=== PATIENT | male | born 1950 | race Caucasian/White ===

== ENCOUNTER → 2017-10-12 | Outpatient (CLI) | payer OTHER | LOC: CARD 13:42 | PROVIDERS: ATTEND Internal Medicine Cardiovascular Disease | DX: R07.89 Other chest pain (principal); R06.02 Shortness of breath; E78.4 Other hyperlipidemia; E66.9 Obesity, unspecified | CPT/HCPCS: 93306 ==

== ENCOUNTER → 2017-10-13 | Outpatient (CLI) | payer OTHER ==
[~2017-10-13] VITALS: Ht 170.2 cm; Wt 88.9 kg
[~2017-10-13] MED LIST: CATHETER FLUSH 10 ML SYR IV PRN
[2017-10-13 13:03] VITALS: BP 138/83
--- NOTE | 2017-10-14 21:48 | STRESS TEST ---
DATE OF SERVICE: 10/13/2017 RESTING AND POST EXERCISE TECHNETIUM-99M TETROFOSMIN SPECT CT IMAGING Baseline images were carried out after injection of 10.75 mCi technetium-99m Tetrofosmin. This was followed by exercise on a treadmill. Kurtis protocol was employed. Heart rate and blood pressure responses to exercise were normal. A 32.8 mCi technetium-99m Tetrofosmin were injected after the patient had attained 85% of maximum predicted heart rate and the exercise was continued for more than another minute. The test was stopped on account of fatigue. There is considerable baseline artifact at peak exercise and ST segments are difficult to interpret. In the recovery phase, there appears to be approximately [address] segment depression. The patient attained a total of 94% of maximum predicted heart rate and 9.7 METS of workload. He exercised for a total of 8 minutes and 6 seconds in the Kurtis protocol. Review of images at rest and following stress indicates a small apical perfusion defect that appears transient. Gated images show normal global left ventricular systolic function with normal regional wall motion. Left ventricular ejection fraction is calculated to be 62%. Left ventricular end diastolic volume 50 mL. TID is absent (0.94). CONCLUSIONS: 1. This study is suggestive of a small amount of apical ischemia. 2. Normal regional wall motion. 3. Normal global left ventricular systolic function with a calculated ejection fraction of 62%. 4. Normal left ventricular cavity size. Job ID: [id number] DocumentID: [id number] Dictated Date: 10/14/2017 17:08:33 Shingle [place]yer Date: 10/14/2017 21:48:15 Dictated By: MORRIS ONEIL MD, MA, FACP, FACC,
== END ==
LOC: CARD 11:27
PROVIDERS: ATTEND Internal Medicine Cardiovascular Disease
DX: R07.89 Other chest pain (principal); R06.02 Shortness of breath; E66.9 Obesity, unspecified; E78.4 Other hyperlipidemia
CPT/HCPCS: 78452; 93017

== ENCOUNTER → 2017-10-27 | Outpatient (CLI) | payer OTHER | LOC: RAD 15:17 | PROVIDERS: ATTEND Internal Medicine Cardiovascular Disease | DX: I70.213 Atherosclerosis of native arteries of extremities with intermittent claudication, bilateral legs (principal); E78.4 Other hyperlipidemia; R07.89 Other chest pain; R06.02 Shortness of breath; E66.9 Obesity, unspecified | CPT/HCPCS: 93923 ==

== ENCOUNTER 2018-11-23 08:58 | Day surgery (SDC) | payer OTHER ==
[~2018-11-23] VITALS: Ht 170.2 cm; Wt 88.9 kg
[2018-11-23] MEDS ORDERED: LIDOCAINE 1% INJ 20 ML 20 ML VIAL ONE (09:01)
[2018-11-23] MEDS ORDERED: HEParin (CATH LAB) 2,000 ML IV ONE (09:01)
[2018-11-23] MEDS ORDERED: NS IV 1000 ML 1,000 ML ONE (09:01)
[2018-11-23] MEDS ORDERED: NS IV 1000 ML 1,000 ML IV SCH ×2 (09:13→13:05)
[2018-11-23 09:28] VITALS: BP 138/75
[2018-11-23 09:50] LABS: HEMOGLOBIN 14.6 G/DL (13.3-17.7); MEAN PLATELET VOLUME 10.1 FL (7.4-10.4); RED CELL DISTRIBUTION WIDTH 13.2 % (10.0-14.5); WHITE BLOOD COUNT 9.2 10^3/uL (4.3-11.0)
[2018-11-23] MEDS ORDERED: ASPI-999 PO (09:54)
[2018-11-23] MEDS ORDERED: NAPR-1071 PO (09:54)
[2018-11-23] MEDS ORDERED: ASCO-262 PO (09:54)
[2018-11-23] MEDS ORDERED: NIAC500C3 PO (09:54)
[2018-11-23] MEDS ORDERED: GABA-488 PO (09:54)
[2018-11-23] MEDS ORDERED: ATOR40TA PO (09:54)
[2018-11-23] MEDS ORDERED: LEVO100T PO (09:54)
[2018-11-23] MEDS ORDERED: METO-370 PO (09:54)
[2018-11-23] MEDS ORDERED: MULT-436 PO (09:54)
[2018-11-23] MEDS ORDERED: FISH1CAP15 PO (09:54)
--- NOTE | 2018-11-23 09:56 | NUR ---
SPOKE WITH PT (HE BROUGHT IN ALL HIS BOTTLES AND HAD A LIST OF ALL HIS OTC MEDS) TO COMPLETE THE MED REC. PT WAS ABLE TO VERIFY ALL HIS MEDICATIONS AND TELL ME HOW HE TAKES THEM. OTC MEDS: ASPIRIN 81M DAILY FISH OIL 1200M TABS DAILY MULTIVITAMIN: 1 DAILY NAPROXEN 500M TAB DAILY NIACIN 500M HS VITAMIN C 500M DAILY
[2018-11-23 10:05] LABS: PROTHROMBIN TIME PATIENT 13.2 SEC (12.2-14.7)
[2018-11-23 10:10] LABS: ALANINE AMINOTRANSFERASE 33 U/L (0-55); ALBUMIN 4.3 GM/DL (3.2-4.5); ALKALINE PHOSPHATASE 117 U/L (40-136); BILIRUBIN,TOTAL 0.6 MG/DL (0.1-1.0); BUN/CREATININE RATIO 11; CALCIUM 9.4 MG/DL (8.5-10.1); CARBON DIOXIDE 26 MMOL/L (21-32); CHLORIDE 104 MMOL/L (98-107); CHOLESTEROL 120 MG/DL (< 200); CREATININE SERUM 1.14 MG/DL (0.60-1.30); GFR ESTIMATED > 60; GLUCOSE 98 MG/DL (70-105); HDL CHOLESTEROL 36 MG/DL (40-60); SODIUM 141 MMOL/L (135-145); TOTAL PROTEIN 7.9 GM/DL (6.4-8.2); TRIGLYCERIDES 150 MG/DL (<150); VLDL CHOLESTEROL 30 MG/DL (5-40)
[2018-11-23] MEDS ORDERED: fentaNYL INJECTION 100 MCG/2 ML AMP ONE (11:25)
[2018-11-23] MEDS ORDERED: MIDAZOLAM 5 MG/5 ML (VERSED) VIAL ONE (11:25)
--- NOTE | 2018-11-23 11:47 | Cardiac Procedure Note-CS/ASA ---
Pre-Procedure Note Pre-Op Procedure Note H&P Reviewed The H&P was reviewed, patient examined and no changes noted. Date H&P Reviewed: Nov 23, 2018 Time H&P Reviewed: 11:47 Conscious Sedation Pre-Proced Time 11:47 ASA Score 3 For ASA 3 and 4: Consider anesthesia and medical clearance. Also, for patients with a history of failed moderate sedation consider anesthesia. Airway Lungs Heart ASA score ASA 1: a normal healthy patient ASA 2: a patient with a mild systemic disease (mid diabetes, controlled hypertension, obesity ASA 3: a patient with a severe systemic disease that limits activity (angina, COPD, prior Myocardial infarction) ASA 4: a patient with an incapacitating disease that is a constant threat to life (CHF, renal failure) ASA 5: a moribund patient not expected to survive 24 hrs. (ruptured aneurysm) ASA 6: a declared brain- patient whose organs are being harvested. For emergent operations, add the letter E after the classification Mallampati Classification Grade 2 Sedation Plan Analgesia, Amnesia, Plan communicated to team members, Discussed options with patient/fam, Discussed risks with patient/fam The patient is an appropriate candidate to undergo the planned procedure, sedation, and anesthesia. The patient immediately re-assessed prior to indication. MORRIS ONEIL MD FACP FAC CCDS Nov 23, 2018 11:47
[2018-11-23] MEDS ORDERED: ASPIRIN 81 MG CHEW (CHILDREN'S ASA) ONE (12:34)
--- NOTE | 2018-11-23 12:45 | CARDIAC CATHETERIZATION ---
DATE OF SERVICE: 11/23/2018 CARDIAC CATHETERIZATION REPORT INDICATIONS: The patient is a 68-year-old man who has multiple coronary artery disease risk factors and who has been experiencing symptoms of angina. Cardiac catheterization was carried out today after having obtained an informed consent. DESCRIPTION OF PROCEDURE: He was brought to the cardiac catheterization laboratory in a fasting state. Right groin was prepared and draped in the usual sterile fashion. Lidocaine 1% was used for local anesthesia. Modified Seldinger technique was used to advance a 5-Jamaican sheath in right femoral artery. A 5-Jamaican JL4 catheter was used for left coronary angiography. During left coronary injections, the patient developed ventricular fibrillation for which he was defibrillated with external patches and that restored sinus rhythm. The catheter, upon engagement of the left main coronary artery, was exhibiting dampening of pressure. Therefore, most injection that we took were subselective. Some initial injections are selective. We used a 5-Jamaican JR4 catheter for right coronary angiography. We used a 5-Jamaican pigtail catheter for left heart catheterization and left ventricular angiography. HEMODYNAMICS: Left ventricular end-diastolic pressure following coronary angiography was 16 mmHg. There is no significant pressure gradient on pullback across the aortic valve. Ascending aortic pressure 116/68 with a mean 87 mmHg. CORONARY ANGIOGRAPHY: There is diffuse coronary calcification. Left main coronary artery has a 60% to 70% distal bifurcation stenosis. The proximal left main coronary artery does not exhibit significant angiographic disease, but there was pressure dampening upon engagement of the left main coronary artery with the diagnostic catheter. The left anterior descending artery has multiple up to 95% stenosis in its proximal midportion. There is diffuse proximal and mid vessel coronary calcification. The distal left anterior descending and the distal diagonal branch of the left anterior descending artery, although of a small caliber, appear bypassable. The left circumflex artery exhibits 50% to 60% ostial and mid vessel stenoses. The right coronary artery is dominant. It is heavily calcified. It has diffuse moderate disease with stenoses of up to 30% to 40%. LEFT VENTRICULAR ANGIOGRAPHY: Left ventricular angiography was carried out in the right anterior oblique projection. Global left ventricular systolic function normal. No regional wall motion abnormality was seen. Left ventricular ejection fraction approximately 65%. CONCLUSIONS: 1. Coronary artery disease that includes 60% to 70% distal bifurcation stenosis of the left main, multiple up to 95% stenosis of the proximal and mid left anterior descending, 50% to 60% ostial and proximal stenosis of the left circumflex, and multiple 40% to 50% stenosis of the dominant right coronary. 2. Mild elevation of left ventricular end-diastolic pressure. 3. Normal global left ventricular systolic function with ejection fraction of 60% to 65%. DISCUSSION AND RECOMMENDATIONS: Based on the nature of his coronary anatomy, coronary artery bypass surgery appears to be the best treatment option. I spoke with the patient and I also spoke with Dr. Morse of the [facility]. Dr. Morse has accepted the patient in transfer. We will transfer for consideration of coronary artery bypass surgery. Job ID: [id number] DocumentID: [id number] Dictated Date: 11/23/2018 12:30:[address] Office Assistant Date: 11/23/2018 12:45:04 Dictated By: MORRIS ONEIL MD, MA, FACP, FACC, MTDD
[2018-11-23 13:00] VITALS: BP 125/80
[2018-11-23 13:15] VITALS: BP 132/76
[2018-11-23] MEDS ORDERED: PATIENT MAY USE OWN MEDS, ALL PO SCH (13:15)
--- NOTE | 2018-11-23 13:42 | Cardiology Discharge Summary ---
Diagnosis/Chief Complaint Date of Admission 11/23/18 Date of Discharge 11/23/18 Final/Discharge Diagnosis Multivessel CAD Hyperlipidemia H/o hypothyroidism Chief Complaint/HPI Chief Complaint/HPI 68 yo man with symptoms of stable angina who underwent card cath today that sh owed multivessel CAD. Please card cath report for details. CABG appears to be the best treatment option. I spoke with him and his and Dr Morse or the [facility] at [facility]. Dr Morse has accepted him in transfer for consideration of CABG. We are making arrangements Discharge Summary Procedures None. Hospital Course Pending Labs Laboratory Tests 11/23/18 09:30: White Blood Count 9.2, Red Blood Count 4.87, Hemoglobin 14.6, Hematocrit 45, Mean Corpuscular Volume 92, Mean Corpuscular Hemoglobin 30, Mean Corpuscular Hemoglobin Concent 33, Red Cell Distribution Width 13.2, Platelet Count 219, Mean Platelet Volume 10.1, Prothrombin Time 13.2, INR Comment 1.0, Activated Partial Thromboplast Time 28, Sodium Level 141, Potassium Level 4.0, Chloride Level 104, Carbon Dioxide Level 26, Anion Gap 11, Blood Urea Nitrogen 13, Creatinine 1.14, Estimat Glomerular Filtration Rate > 60, BUN/Creatinine Ratio 11, Glucose Level 98, Calcium Level 9.4, Corrected Calcium 9.2, Total Bilirubin 0.6, Aspartate Amino Transf (AST/SGOT) 27, Alanine Aminotransferase (ALT/SGPT) 33, Alkaline Phosphatase 117, Total Protein 7.9, Albumin 4.3, Triglycerides Level 150, Cholesterol Level 120, LDL Cholesterol Direct 60, VLDL Cholesterol 30, HDL Cholesterol 36 Discussion & Recommendations Home Medications Reviewed patient Home Medication Reconciliation performed by pharmacy medication reconciliations wind tunnel technician and/or nursing. Patients Allergies have been reviewed. Discharge Home Medications: Reviewed and agree with Discharge Medication list on patient's Discharge Instruction sheet MORRIS ONEIL MD FACP FAC CCDS Nov 23, 2018 13:42
--- NOTE | 2018-11-23 14:36 | NUR ---
1245 PT TO ROOM ICU 2 VIA BED REPORT RECEIVED FROM Srinivas HYATT RN. PT TO BE TRANSFERRED TO [facility] CALL[facility] AND REPORT GIVEN TO GINO MARSHALL. 1350 PT LEFT FLOOR VIA BED ACCOMPANIED BY EMS. THIS RN NOTIFIED GINO AT [place].
== END 2018-11-23 13:50 | disposition designated cancer center or children's hospital (05) ==
LOC: CARD 08:58 → ICU 12:44 → CATH 13:50
PROVIDERS: ATTEND Internal Medicine Cardiovascular Disease
DX: I25.10 Atherosclerotic heart disease of native coronary artery without angina pectoris (principal); E03.9 Hypothyroidism, unspecified; E78.5 Hyperlipidemia, unspecified; E11.9 Type 2 diabetes mellitus without complications; Z80.1 Family history of malignant neoplasm of trachea, bronchus and lung; Z82.49 Family history of ischemic heart disease and other diseases of the circulatory system; Z90.49 Acquired absence of other specified parts of digestive tract
CPT/HCPCS: 36415; 80053; 80061; 85027; 85610; 85730; 87081; 93005; 93458